=== PATIENT | female | born 1955 | race Caucasian/White ===

== ENCOUNTER → 2020-01-30 | Outpatient (CLI) | payer MEDICARE, OTHER | LOC: M.WC 04:37 | PROVIDERS: ATTEND Family Medicine | DX: T81.31XA Disruption of external operation (surgical) wound, not elsewhere classified, initial encounter (principal); C4A.71 Merkel cell carcinoma of right lower limb, including hip; E11.51 Type 2 diabetes mellitus with diabetic peripheral angiopathy without gangrene; E11.65 Type 2 diabetes mellitus with hyperglycemia; E66.9 Obesity, unspecified; I89.0 Lymphedema, not elsewhere classified; I25.10 Atherosclerotic heart disease of native coronary artery without angina pectoris; I10 Essential (primary) hypertension; K21.9 Gastro-esophageal reflux disease without esophagitis; F32.9 Major depressive disorder, single episode, unspecified; Z79.82 Long term (current) use of aspirin; Z85.51 Personal history of malignant neoplasm of bladder; Z90.49 Acquired absence of other specified parts of digestive tract; Z90.710 Acquired absence of both cervix and uterus; Z87.891 Personal history of nicotine dependence; Z68.39 Body mass index [BMI] 39.0-39.9, adult; Y92.238 Other place in hospital as the place of occurrence of the external cause; Y83.8 Other surgical procedures as the cause of abnormal reaction of the patient, or of later complication, without mention of misadventure at the time of the procedure ==

== ENCOUNTER → 2020-02-14 | Outpatient (CLI) | payer MEDICARE, OTHER | LOC: M.WC 03:55 | PROVIDERS: ATTEND Family Medicine | DX: T81.89XD Other complications of procedures, not elsewhere classified, subsequent encounter (principal); E11.622 Type 2 diabetes mellitus with other skin ulcer; L97.812 Non-pressure chronic ulcer of other part of right lower leg with fat layer exposed; C4A.71 Merkel cell carcinoma of right lower limb, including hip; E11.51 Type 2 diabetes mellitus with diabetic peripheral angiopathy without gangrene; I89.0 Lymphedema, not elsewhere classified; E11.65 Type 2 diabetes mellitus with hyperglycemia; I25.10 Atherosclerotic heart disease of native coronary artery without angina pectoris; I10 Essential (primary) hypertension; F32.9 Major depressive disorder, single episode, unspecified; Z87.891 Personal history of nicotine dependence; Z79.01 Long term (current) use of anticoagulants; Z79.82 Long term (current) use of aspirin; Y83.8 Other surgical procedures as the cause of abnormal reaction of the patient, or of later complication, without mention of misadventure at the time of the procedure ==

== ENCOUNTER → 2020-02-21 | Outpatient (CLI) | payer MEDICARE, OTHER | LOC: M.WC 02-20 09:30 | PROVIDERS: ATTEND Family Medicine | DX: T81.89XD Other complications of procedures, not elsewhere classified, subsequent encounter (principal); E11.622 Type 2 diabetes mellitus with other skin ulcer; L97.812 Non-pressure chronic ulcer of other part of right lower leg with fat layer exposed; C4A.71 Merkel cell carcinoma of right lower limb, including hip; E11.51 Type 2 diabetes mellitus with diabetic peripheral angiopathy without gangrene; E11.65 Type 2 diabetes mellitus with hyperglycemia; I89.0 Lymphedema, not elsewhere classified; I25.10 Atherosclerotic heart disease of native coronary artery without angina pectoris; L84 Corns and callosities; I10 Essential (primary) hypertension; F32.9 Major depressive disorder, single episode, unspecified; Z87.891 Personal history of nicotine dependence; Z79.01 Long term (current) use of anticoagulants; Z79.82 Long term (current) use of aspirin; Y83.8 Other surgical procedures as the cause of abnormal reaction of the patient, or of later complication, without mention of misadventure at the time of the procedure ==

== ENCOUNTER → 2020-02-26 | Outpatient (CLI) | payer MEDICARE, OTHER | LOC: M.WC 04:48 | PROVIDERS: ATTEND Surgery | DX: T81.89XA Other complications of procedures, not elsewhere classified, initial encounter (principal); E11.622 Type 2 diabetes mellitus with other skin ulcer; L97.512 Non-pressure chronic ulcer of other part of right foot with fat layer exposed; C4A.71 Merkel cell carcinoma of right lower limb, including hip; E11.51 Type 2 diabetes mellitus with diabetic peripheral angiopathy without gangrene; E11.65 Type 2 diabetes mellitus with hyperglycemia; I89.0 Lymphedema, not elsewhere classified; I87.8 Other specified disorders of veins; I25.10 Atherosclerotic heart disease of native coronary artery without angina pectoris; I10 Essential (primary) hypertension; K21.9 Gastro-esophageal reflux disease without esophagitis; F32.9 Major depressive disorder, single episode, unspecified; Z85.51 Personal history of malignant neoplasm of bladder; Z87.891 Personal history of nicotine dependence; Z79.82 Long term (current) use of aspirin; Y92.238 Other place in hospital as the place of occurrence of the external cause; Y83.8 Other surgical procedures as the cause of abnormal reaction of the patient, or of later complication, without mention of misadventure at the time of the procedure ==

== ENCOUNTER → 2020-03-06 | Outpatient (CLI) | payer MEDICARE, OTHER | LOC: M.WC 04:35 | PROVIDERS: ATTEND Family Medicine | DX: T81.89XD Other complications of procedures, not elsewhere classified, subsequent encounter (principal); E11.622 Type 2 diabetes mellitus with other skin ulcer; L97.812 Non-pressure chronic ulcer of other part of right lower leg with fat layer exposed; C4A.71 Merkel cell carcinoma of right lower limb, including hip; E11.51 Type 2 diabetes mellitus with diabetic peripheral angiopathy without gangrene; E11.65 Type 2 diabetes mellitus with hyperglycemia; E66.9 Obesity, unspecified; I89.0 Lymphedema, not elsewhere classified; I87.8 Other specified disorders of veins; I10 Essential (primary) hypertension; I25.10 Atherosclerotic heart disease of native coronary artery without angina pectoris; K21.9 Gastro-esophageal reflux disease without esophagitis; F32.9 Major depressive disorder, single episode, unspecified; Z87.891 Personal history of nicotine dependence; Z68.39 Body mass index [BMI] 39.0-39.9, adult; Y83.8 Other surgical procedures as the cause of abnormal reaction of the patient, or of later complication, without mention of misadventure at the time of the procedure ==

== ENCOUNTER → 2020-03-12 | Outpatient (CLI) | payer MEDICARE, OTHER | LOC: M.WC 05:05 | PROVIDERS: ATTEND Family Medicine | DX: T81.89XA Other complications of procedures, not elsewhere classified, initial encounter (principal); L97.812 Non-pressure chronic ulcer of other part of right lower leg with fat layer exposed; C4A.71 Merkel cell carcinoma of right lower limb, including hip; E11.51 Type 2 diabetes mellitus with diabetic peripheral angiopathy without gangrene; E11.65 Type 2 diabetes mellitus with hyperglycemia; E66.9 Obesity, unspecified; I89.0 Lymphedema, not elsewhere classified; I25.10 Atherosclerotic heart disease of native coronary artery without angina pectoris; I10 Essential (primary) hypertension; K21.9 Gastro-esophageal reflux disease without esophagitis; F32.9 Major depressive disorder, single episode, unspecified; Z87.891 Personal history of nicotine dependence; Z68.39 Body mass index [BMI] 39.0-39.9, adult; Y92.238 Other place in hospital as the place of occurrence of the external cause; Y83.8 Other surgical procedures as the cause of abnormal reaction of the patient, or of later complication, without mention of misadventure at the time of the procedure ==

== ENCOUNTER 2020-07-23 08:35 | Inpatient (IN) | payer MEDICARE, OTHER ==
[~2020-07-23] VITALS: Ht 160 cm; Wt 112.1 kg
[2020-07-23 08:36] VITALS: BP 107/68
[2020-07-23 09:11] LABS: ABSOLUTE EOSINOPHILS 0.2 thou/uL (0.0-0.7); ABSOLUTE LYMPHOCYTES 1.2 thou/uL (0.8-5.3); ABSOLUTE MONOCYTES 0.6 thou/uL (0.0-1.2); ABSOLUTE NEUTROPHILS 4.5 thou/uL (1.6-8.1); BASOPHILS 0.6 %; EOSINOPHILS 3.1 %; HEMOGLOBIN 7.3 gm/dL (12.0-15.0); LYMPHOCYTES 18.4 %; MCH 23.9 pg (26.0-34.0); MCHC 31.6 g/dL (28.0-37.0); MCV 75.7 fL (80.0-100.0); MONOCYTES 8.6 %; MPV 7.7 fl. (7.2-11.1); NUCLEATED RBCS 0 /100WBC; PLATELET COUNT* 321 thou/uL (150-400); POLYS 69.3 %; RBC 3.04 mil/uL (4.20-5.00); RDW-CV 18.8 % (10.5-14.5); WBC 6.5 thou/uL (4.0-11.0)
[2020-07-23 09:16] LABS: ANION GAP 10 mmol/L (7-16); BUN 13 mg/dL (7-18); CHLORIDE 102 mmol/L (98-107); CO2 28 mmol/L (21-32); CREATININE 1.2 mg/dL (0.6-1.3); GLUCOSE 198 mg/dL (70-99); SODIUM 140 mmol/L (136-145)
[2020-07-23 09:18] LABS: APTT 32.7 Seconds (25.0-31.3); INR 1.2; PROTIME 13.1 Seconds (9.20-11.50)
[2020-07-23 09:40] LABS: ALBUMIN 2.7 g/dL (3.4-5.0); ALKALINE PHOSPHATASE 141 U/L (46-116); CK-MB MASS < 0.5 ng/mL (<0.5-3.6); LIPASE 81 U/L (73-393); MAGNESIUM 1.9 mg/dL (1.8-2.4); NT-PRO BRAIN NAT PEPTIDE 2059 pg/mL (<300); SGOT 31 U/L (15-37); SGPT 11 U/L (30-65); TOTAL BILIRUBIN 0.5 mg/dL (<0.1-1.0); TOTAL PROTEIN 5.6 g/dL (6.4-8.2)
[2020-07-23 09:42] LABS: POTASSIUM 2.5 mmol/L (3.5-5.1)
[2020-07-23 10:08] LABS: URINE BILIRUBIN NEGATIVE (Negative); URINE BLOOD 3+ (Negative); URINE CLARITY CLOUDY; URINE COLOR YELLOW; URINE GLUCOSE-RANDOM NEGATIVE (Negative); URINE KETONES NEGATIVE (Negative); URINE LEUKOCYTES-REFLEX TRACE (Negative); URINE NITRITE-REFLEX NEGATIVE (Negative); URINE PROTEIN 2+ (Negative); URINE SPECIFIC GRAVITY >= 1.030 (1.005-1.030); URINE UROBILINOGEN 0.2 E.U./dl (0.2-1.0)
[2020-07-23 10:16] LABS: URINE RBC >20 Many /HPF (0-2)
[2020-07-23 10:17] LABS: URINE WBC-REFLEX 0-5 Rare /HPF (0-5)
[2020-07-23 10:18] LABS: BACTERIA-REFLEX 1-9 Few /HPF (None Seen); MUCUS None Seen strn/LPF (None Seen)
[2020-07-23 10:23] LABS: CASTS None Seen /LPF (None Seen)
[2020-07-23 10:24] LABS: CRYSTALS None Seen /LPF (None Seen); SQUAMOUS 4-10 Moderate /LPF (0-3)
[2020-07-23] MEDS ORDERED: LIPITOR 40 MG T40 M1 PO (10:32)
[2020-07-23] MEDS ORDERED: TOPROL XL25 MG PO (10:32)
[2020-07-23] MEDS ORDERED: MIRAPEX1 MG PO (10:33)
[2020-07-23] MEDS ORDERED: DIFLUCAN200 MG PO (10:33)
[2020-07-23] MEDS ORDERED: XARELTO20 MG PO (10:33)
[2020-07-23] MEDS ORDERED: PLAVIX 75 MG TA75 MG PO (10:33)
[2020-07-23] MEDS ORDERED: PREGABALIN75 MG PO (10:33)
[2020-07-23] MEDS ORDERED: DILAUDID1 MG/1 M1 PO (10:34)
[2020-07-23] MEDS ORDERED: KEFLEX500 M1 PO (10:34)
[2020-07-23 11:37] VITALS: BP 124/55
[2020-07-23 12:00] VITALS: BP 99/56
--- NOTE | 2020-07-23 16:21 | EKG ---
[place] [address] ELECTROCARDIOGRAM REPORT Name: HOLLY STEELE Room: [address] IN [facility]#: [id number] Admission: 07/23/20 Attend Phys: Juventino Gil, Discharge: Date of : 53 Date of Service: 07/23/20 1530 Report #: [id number] THIS REPORT FOR: //name// [facility] Test Date: 2020-07-23 Test Time: 15:30:59 Pat Name: HOLLY STEELE Department: Room: [facility] Gender: F Laborer Sawmill: : 1955 Requested By: Moises Alcaraz Order Number: [id number] MD: David Hill Measurements Intervals [place] Rate: 99 P: 58 GA: 136 QRS: 35 QRSD: 72 T: 18 QT: 397 QTc: 510 Interpretive Statements Sinus tachycardia Low voltage, precordial leads Borderline T abnormalities, anterior leads Prolonged QT interval No previous ECG available for comparison Electronically Signed On 07-23-2020 16:21:14 COMMERCIAL SEWING INSTRUCTOR by Dvaid Hill [email or web address] <ELECTRONICALLY SIGNED> By: David Hill MD, [facility] 07/23/20 1621 1530 1530 David Hill MD, [facility] /EPI
--- NOTE | 2020-07-23 16:35 | 2DMMODE ---
[place] [address] 2 D/M-MODE ECHOCARDIOGRAM Name: HOLLY STEELE Room: [address] IN [facility]#: [id number] Admission: 07/23/20 Attend Phys: Juventino Gil, Discharge: Date of : 53 Date of Service: 07/23/20 1635 Report #: [id number] THIS REPORT FOR: cc: Tristan Granados Russell J. DO Liston, Michael J. MD [facility] ~ APPROVED REPORT Study performed: 07/23/2020 15:00:48 EXAM: Comprehensive 2D, Doppler, and color-flow Echocardiogram Patient Location: In-Patient Room #: [facility] Status: routine BSA: 2.05 HR: 100 bpm BP: 95/56 mmHg Rhythm: NSR Other Information Study Quality: Good Indications CVA/TIA Echo Enhancing Agent Indication: Rule out Shunt Agent(s) / Amount(s) Used: Agitated Saline 10 cc 2D Dimensions IVSd: 9.29 (7-11mm) LVOT Diam: 19.21 (18-24mm) LVDd: 63.03 mm PWd: 9.12 (7-11mm) Ascending Ao: 27.63 (22-36mm) LVDs: 50.67 (25-40mm) Aortic Root: 31.75 mm Volumes Left Atrial Volume (Systole) LA ESV Index: 34.70 mL/m2 Aortic Valve AoV Peak Erick.: 1.73 m/s AO Peak Gr.: 11.96 mmHg LVOT Max P.35 mmHg AO Mean Gr.: 7.17 mmHg LVOT Mean P.20 [place] [address] 2 D/M-MODE ECHOCARDIOGRAM Name: HOLLY STEELE Room: [address] IN ..#: [id number] Admission: 07/23/20 Attend Phys: Juventino Gil, Discharge: Date of : 53 Date of Service: 07/23/20 1635 Report #: [id number] LVOT Max V: 1.26 m/s AO V2 VTI: 33.77 cm LVOT Mean V: 0.81 m/s AYAZ (VTI): 2.06 cm2 LVOT V1 VTI: 23.98 cm Mitral Valve E/A Ratio: 1.66 MV Decel. Time: 178.19 ms MV E Max Erick.: 1.55 m/s MV PHT: 51.67 ms MVA (PHT): 4.26 cm2 TDI E/Lateral E': 11.92 E/Medial E': 12.92 Medial E' Erick.: 0.12 m/s Lateral E' Erick.: 0.13 m/s Pulmonary Valve PV Peak Erick.: 1.40 m/s PV Peak Gr.: 7.87 mmHg Tricuspid Valve RAP Estimate: 15.00 mmHg TR Peak Gr.: 36.45 mmHg RVSP: 51.00 mmHg PA Pressure: 51.00 mmHg Left Ventricle Left ventricle is mildly dilated. There is significant hypokinesis of the anterior anteroseptal wall. There is normal left ventricular wall thickness. Left ventricular systolic function is mildly decreased. LVEF is 40-45%. Transmitral Doppler flow pattern suggests restrictive physiology. Right Ventricle The right ventricle is normal size. The right ventricular systolic function is normal. Atria Left atrium is mildly dilated. The right atrium size is normal. Aortic Valve The aortic valve is normal in structure. No aortic regurgitation is present. There is no aortic valvular stenosis. Mitral Valve The mitral valve is normal in structure. Mild mitral regurgitation. No evidence [place] [address] 2 D/M-MODE ECHOCARDIOGRAM Name: HOLLY STEELE Room: [address] IN [facility]#: [id number] Admission: 07/23/20 Attend Phys: Juventino Gil, Discharge: Date of : 53 Date of Service: 07/23/20 1635 Report #: [id number] Tricuspid Valve The tricuspid valve is normal in structure. Mild tricuspid regurgitation. The RVSP is 35-40 mmHg. Pulmonic Valve The pulmonary valve is normal in structure. There is no pulmonic valvular regurgitation. Great Vessels The aortic root is normal in size. IVC is dilated and collapses <50% with inspiration. Pericardium Trace pericardial effusion. <Conclusion> Left ventricle is mildly dilated. There is normal left ventricular wall thickness. Left ventricular systolic function is mildly decreased. LVEF is 40-45%. Transmitral Doppler flow pattern suggests restrictive physiology. Left atrium is mildly dilated. Mild mitral regurgitation. Mild tricuspid regurgitation. The RVSP is 35-40 mmHg. IVC is dilated and collapses <50% with inspiration. Contrast study using agitated saline and adequate for determination of presence or absence of PFO. <ELECTRONICALLY SIGNED> By: Rogerio Torres MD, FACC 07/23/20 1635 1635 1635 Rogerio Torres MD, FACC /INF
--- NOTE | 2020-07-23 17:39 | EKG ---
[place] [address] ELECTROCARDIOGRAM REPORT Name: HOLLY STEELE Room: [address] ADM IN [facility].#: [id number] Admission: 07/23/20 Attend Phys: Juventino Gil, Discharge: Date of : 53 Date of Service: 07/23/20 0842 Report #: [id number] THIS REPORT FOR: //name// [facility] ED Test Date: 2020-07-23 Test Time: 08:42:12 Pat Name: HOLLY STEELE Department: Room: [address] Gender: F Carport Erector: KYLAH : 1955 Requested By: Sandhya Finley Order Number: [id number] Kelsie MD: Rogerio Torres Measurements Intervals [place] Rate: 166 P: AL: QRS: 34 QRSD: 97 T: 207 QT: 276 QTc: 459 Interpretive Statements Atrial fibrillation with rapid V-rate Repolarization abnormality, prob rate related No previous ECG available for comparison Electronically Signed On 07-23-2020 17:39:41 BENCH LAY OUT TECHNICIAN by Rogerio Torres [email or web address] <ELECTRONICALLY SIGNED> By: Rogerio Torres MD, FACC 07/23/20 1739 0842 0842 Rogerio Torres MD, [facility] /EPI
[2020-07-23 20:00] VITALS: BP 105/52
[2020-07-23 23:31] VITALS: BP 110/57
[2020-07-24] VITALS (11 sets, daily range): BP systolic 93–134; BP diastolic 46–66
[2020-07-24 02:06] LABS: GLYCOHEMOGLOBIN (HGB A1C) 6.2 % (4.8-5.6)
[2020-07-24 06:38] LABS: MCH 23.6 pg (26.0-34.0); MCHC 31.4 g/dL (28.0-37.0); MCV 75.3 fL (80.0-100.0); MPV 7.7 fl. (7.2-11.1); RBC 2.59 mil/uL (4.20-5.00); RDW-CV 19.1 % (10.5-14.5); WBC 4.7 thou/uL (4.0-11.0)
[2020-07-24 06:42] LABS: HEMATOCRIT 19.5 % (37.0-47.0); HEMOGLOBIN 6.1 gm/dL (12.0-15.0)
[2020-07-24 06:56] LABS: CALCIUM 8.6 mg/dL (8.5-10.1); CREATININE 0.9 mg/dL (0.6-1.3); POTASSIUM 3.6 mmol/L (3.5-5.1)
--- NOTE | 2020-07-24 10:03 | EKG ---
[place] [address] ELECTROCARDIOGRAM REPORT Name: HOLLY STEELE Room: [address] ADM IN [facility].#: [id number] Admission: 07/23/20 Attend Phys: Juventino Gil, Discharge: Date of : 53 Date of Service: 07/24/20 0805 Report #: [id number] THIS REPORT FOR: //name// [facility] Test Date: 2020-07-24 Test Time: 08:05:54 Pat Name: HOLLY STEELE Department: Room: [address] Gender: F Reproductive Endocrinologist: : 1955 Requested By: Sandhya Finley Order Number: [id number] Reading MD: David Hill Measurements Intervals [place] Rate: 85 P: 55 [place]: 136 QRS: 32 QRSD: 100 T: 69 QT: 489 QTc: 582 Interpretive Statements Sinus rhythm Prolonged QT interval Compared to ECG 07/23/2020 15:30:59 Sinus tachycardia no longer present T-wave abnormality no longer present Electronically Signed On 07-24-2020 10:03:16 SEAMER OPERATOR by David Hill [email or web address] <ELECTRONICALLY SIGNED> By: David Hill MD, [facility] 07/24/20 1003 4 08 David Hill MD, [facility] /EPI
[2020-07-24 13:42] LABS: HEMATOCRIT 21.5 % (37.0-47.0)
[2020-07-24 13:44] LABS: HEMOGLOBIN 6.8 gm/dL (12.0-15.0)
[2020-07-24 19:15] LABS: HEMATOCRIT 23.8 % (37.0-47.0); HEMOGLOBIN 7.7 gm/dL (12.0-15.0)
[2020-07-25] VITALS (7 sets, daily range): BP systolic 95–123; BP diastolic 40–58
[2020-07-25 06:19] LABS: HEMATOCRIT 24.1 % (37.0-47.0); HEMOGLOBIN 7.6 gm/dL (12.0-15.0)
[2020-07-25 17:19] LABS: HEMATOCRIT 21.2 % (37.0-47.0)
[2020-07-25 17:31] LABS: HEMOGLOBIN 6.9 gm/dL (12.0-15.0)
[2020-07-26 04:46] LABS: HEMATOCRIT 23.7 % (37.0-47.0); HEMOGLOBIN 7.7 gm/dL (12.0-15.0); MCH 25.9 pg (26.0-34.0); MCHC 32.4 g/dL (28.0-37.0); MPV 8.3 fl. (7.2-11.1); RBC 2.96 mil/uL (4.20-5.00); RDW-CV 19.5 % (10.5-14.5); WBC 6.7 thou/uL (4.0-11.0)
[2020-07-26 04:59] VITALS: BP 100/55
[2020-07-26 05:03] LABS: CALCIUM 8.9 mg/dL (8.5-10.1); MAGNESIUM 2.1 mg/dL (1.8-2.4); POTASSIUM 3.3 mmol/L (3.5-5.1)
[2020-07-26 08:00] VITALS: BP 108/81
[2020-07-26 12:37] VITALS: BP 110/56
[2020-07-26 14:21] LABS: HEMATOCRIT 22.2 % (37.0-47.0); HEMOGLOBIN 7.3 gm/dL (12.0-15.0)
[2020-07-26 16:22] VITALS: BP 114/63
[2020-07-26 21:00] VITALS: BP 94/52
[2020-07-26 23:44] VITALS: BP 104/53
[2020-07-27 04:25] LABS: HEMATOCRIT 21.9 % (37.0-47.0); MCH 25.7 pg (26.0-34.0); MCHC 32.1 g/dL (28.0-37.0); MCV 79.9 fL (80.0-100.0); MPV 8.1 fl. (7.2-11.1); RBC 2.74 mil/uL (4.20-5.00); WBC 5.6 thou/uL (4.0-11.0)
[2020-07-27 04:35] VITALS: BP 112/51
[2020-07-27 04:44] LABS: CREATININE 1.1 mg/dL (0.6-1.3); POTASSIUM 3.5 mmol/L (3.5-5.1)
[2020-07-27 08:07] VITALS: BP 102/47
[2020-07-27 12:18] VITALS: BP 113/56
--- NOTE | 2020-07-27 13:43 | EKG ---
[place] [address] ELECTROCARDIOGRAM REPORT Name: HOLLY STEELE Room: [address] ADM IN [facility].#: [id number] Admission: 07/23/20 Attend Phys: Juventino Gil, Discharge: Date of : 53 Date of Service: 07/25/20 0916 Report #: [id number] THIS REPORT FOR: //name// [facility] Test Date: 2020-07-25 Test Time: 09:16:01 Pat Name: HOLLY STEELE Department: Room: [address] Gender: F Frankfurter Inspector: Otis Andrade : 1955 Requested By: Sandhya Finley Order Number: [id number] Kelsie MD: Chris Dixon Measurements Intervals [place] Rate: 84 P: 70 [place]: 138 QRS: 48 QRSD: 99 T: 62 QT: 503 QTc: 595 Interpretive Statements Sinus rhythm Minimal ST depression, lateral leads Prolonged QT interval Compared to ECG 07/24/2020 08:05:54 ST (T wave) deviation now present Electronically Signed On 07-27-2020 13:43:31 MANAGER FITNESS by Chirs Dixon [email or web address] <ELECTRONICALLY SIGNED> By: Chris Dixon MD, FAC 07/27/20 1343 5 09 Chris Dixon MD, FAC /EPI
--- NOTE | 2020-07-27 13:47 | EKG ---
[place] [address] ELECTROCARDIOGRAM REPORT Name: HOLLY STEELE Room: [address] ADM IN [facility].#: [id number] Admission: 07/23/20 Attend Phys: Juventino Gil, Discharge: Date of : 53 Date of Service: 07/26/20 0829 Report #: [id number] THIS REPORT FOR: //name// [facility] Test Date: 2020-07-26 Test Time: 08:29:44 Pat Name: HOLLY STEELE Department: Room: [address] Gender: F Lawn Mower Operator: Otis Andrade : 1955 Requested By: Juventino Gil Order Number: [id number] Reading MD: Chris Dixon Measurements Intervals [place] Rate: 84 P: 65 [place]: 139 QRS: 41 QRSD: 102 T: 44 QT: 536 QTc: 634 Interpretive Statements Sinus rhythm Borderline repolarization abnormality Prolonged QT interval Compared to ECG 07/26/2020 03:27:32 No significant changes Electronically Signed On 07-27-2020 13:47:46 MACHINE OPERATOR PICKER by Chris Dixon [email or web address] <ELECTRONICALLY SIGNED> By: Chris Dixon MD, [facility] 07/27/20 1347 8 8 Chris Dixon MD, [facility] /EPI
--- NOTE | 2020-07-27 13:47 | EKG ---
[place] [address] ELECTROCARDIOGRAM REPORT Name: HOLLY STEELE Room: [address] ADM IN [facility].#: [id number] Admission: 07/23/20 Attend Phys: Juventino Gil, Discharge: Date of : 53 Date of Service: 07/26/20 0327 Report #: [id number] THIS REPORT FOR: //name// [facility] Test Date: 2020-07-26 Test Time: 03:27:32 Pat Name: HOLLY STEELE Department: Room: [address] Gender: F Disabilities Services Officer: DT : 1955 Requested By: Sandhya Finley Order Number: [id number] Reading MD: Chris Dixon Measurements Intervals [place] Rate: 91 P: 76 [place]: 136 QRS: 70 QRSD: 73 T: QT: 431 QTc: 531 Interpretive Statements Sinus rhythm Low voltage, precordial leads Abnormal R-wave progression, early transition Borderline repolarization abnormality Prolonged QT interval Compared to ECG 07/25/2020 09:16:01 Low QRS voltage now present ST (T wave) deviation no longer present Electronically Signed On 07-27-2020 13:47:11 HAT CHECKER by Chris Dixon [email or web address] <ELECTRONICALLY SIGNED> By: Chris Dixon MD, [facility] 07/27/20 1347 6 6 Chris Dixon MD, [facility] /EPI
--- NOTE | 2020-07-27 14:01 | EKG ---
[place] [address] ELECTROCARDIOGRAM REPORT Name: HOLLY STEELE Room: [address] ADM IN [facility].#: [id number] Admission: 07/23/20 Attend Phys: Juventino Gil, Discharge: Date of : 53 Date of Service: 07/27/20823 Report #: [id number] THIS REPORT FOR: //name// [facility] Test Date: 2020-07-27 Test Time: 08:24:54 Pat Name: HOLLY STEELE Department: Room: [address] Gender: F Zipper Measurer: : 1955 Requested By: Sandhya Finley Order Number: [id number] Kelsie MD: Chris Dixon Measurements Intervals [place] Rate: 88 P: 65 [place]: 131 QRS: 46 QRSD: 80 T: 162 QT: 506 QTc: 613 Interpretive Statements Sinus rhythm Borderline repolarization abnormality Prolonged QT interval Compared to ECG 07/26/2020 08:29:44 No significant changes Electronically Signed On 07-27-2020 14:00:59 SHIP ENGINES OPERATING ENGINEER by Chris Dixon [email or web address] <ELECTRONICALLY SIGNED> By: Chris Dixon MD, FAC 07/27/20 1400 3 3 Chris Dixon MD, [facility] /EPI
[2020-07-27 14:07] LABS: HEMATOCRIT 23.9 % (37.0-47.0); HEMOGLOBIN 7.6 gm/dL (12.0-15.0)
[2020-07-27 15:56] VITALS: BP 100/48
== END 2020-07-27 19:45 | disposition short-term general hospital (02) | DRG 686 ==
LOC: M.ERS 08:35 → M.2W 09:23 → M.TBA-ER 09:23 → M.2W 12:37
PROVIDERS: Family Medicine; Internal Medicine; ADMIT Internal Medicine; ATTEND Internal Medicine
PROC: 02HV33Z Insertion of Infusion Device into Superior Vena Cava, Percutaneous Approach (ICD-10-PCS; 2020-07-23)
PROC: B548ZZA Ultrasonography of Superior Vena Cava, Guidance (ICD-10-PCS; 2020-07-23)
PROC: 30233N1 Transfusion of Nonautologous Red Blood Cells into Peripheral Vein, Percutaneous Approach (ICD-10-PCS; principal; 2020-07-24)
DX: D49.4 Neoplasm of unspecified behavior of bladder (principal); I21.A1 Myocardial infarction type 2; I50.23 Acute on chronic systolic (congestive) heart failure; D62 Acute posthemorrhagic anemia; E44.0 Moderate protein-calorie malnutrition; Z68.41 Body mass index [BMI] 40.0-44.9, adult; D68.59 Other primary thrombophilia; N39.0 Urinary tract infection, site not specified; I50.32 Chronic diastolic (congestive) heart failure; I48.91 Unspecified atrial fibrillation; I11.0 Hypertensive heart disease with heart failure; D64.9 Anemia, unspecified; R59.0 Localized enlarged lymph nodes; E87.6 Hypokalemia; E66.01 Morbid (severe) obesity due to excess calories; N20.0 Calculus of kidney; C4A.9 Merkel cell carcinoma, unspecified; I25.10 Atherosclerotic heart disease of native coronary artery without angina pectoris; G89.29 Other chronic pain; D63.8 Anemia in other chronic diseases classified elsewhere; E78.5 Hyperlipidemia, unspecified; I73.9 Peripheral vascular disease, unspecified; I48.0 Paroxysmal atrial fibrillation; E53.8 Deficiency of other specified B group vitamins; R31.0 Gross hematuria; Z20.822 Contact with and (suspected) exposure to COVID-19; Z88.8 Allergy status to other drugs, medicaments and biological substances; Z88.0 Allergy status to penicillin; Z79.01 Long term (current) use of anticoagulants; Z79.899 Other long term (current) drug therapy